=== PATIENT | female | born 2000 | race Caucasian/White ===

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

== ENCOUNTER → 2019-05-29 | Outpatient (CLI) | payer OTHER, MEDICAID ==
[~2019-05-29] MED LIST: MAPA500T2 PO; MOTR200T44 PO; PRENTAB9 PO
[2019-05-29 12:25] LABS: BASO % 0.3 % (0.0-1.0); EOS # 0.1 10^3/uL (0.0-0.5); EOS % 1.5 % (0.0-3.0); HEMOGLOBIN 11.5 g/dl (12.0-15.5); LYMPH # 1.9 10^3/uL (1.5-5.0); LYMPH % 25.4 % (24.0-44.0); MEAN CORPUSCULAR HEMOGLOBIN 23.7 pg (27.0-33.0); MEAN CORPUSCULAR HGB CONC 29.5 g/dl (32.0-36.5); MEAN CORPUSCULAR VOLUME 80.2 fl (80.0-96.0); MONO # 0.4 10^3/uL (0.0-0.8); MONO % 5.9 % (0.0-5.0); NEUTROPHILS # 4.9 10^3/uL (1.5-8.5); NEUTROPHILS % 66.6 % (36.0-66.0); PLATELET COUNT, AUTOMATED 270 10^3/uL (150-450); RED BLOOD COUNT 4.86 10^6/uL (4.00-5.40); WHITE BLOOD COUNT 7.3 10^3/uL (4.0-10.0)
[2019-05-29 12:33] LABS: ALT/SGPT 26 U/L (12-78); CREATININE FOR GFR 0.49 MG/DL (0.55-1.30); GLUCOSE CHALLENGE TEST 1 HOUR 110 MG/DL (LESS THAN 140); LDH LACTATE DEHYDROGENASE 127 U/L (84-246); URIC ACID 2.6 MG/DL (2.6-6.0)
[2019-05-29 12:40] LABS: HEMOGLOBIN A1c 5.3 %; TOTAL PROTEIN,RANDOM URINE 13.8 MG/DL (0.0-12.0)
[2019-05-29 12:46] LABS: RUBELLA IgG QUALITATIVE IMMUNE (IMMUNE)
[2019-05-29 13:15] LABS: HEPATITIS C VIRUS ABY INDEX < 0.0 INDEX (<0.8); HIV 1&2 SCREEN CENTAUR NEGATIVE (NEGATIVE)
[2019-05-29 13:51] LABS: CHLAMYDIA DNA AMPLIFICATION NEGATIVE (NEGATIVE); GC DNA AMPLIFICATION NEGATIVE (NEGATIVE)
== END ==
LOC: M PLALAB 08:46
PROVIDERS: ATTEND Advanced Practice Midwife
DX: O99.211 Obesity complicating pregnancy, first trimester (principal); E66.9 Obesity, unspecified

== ENCOUNTER → 2019-06-15 | Outpatient (REF) | payer OTHER, MEDICAID | LOC: M SFHCWAGY 11:10 | PROVIDERS: ATTEND Advanced Practice Midwife | DX: N39.0 Urinary tract infection, site not specified (principal) ==

== ENCOUNTER → 2019-08-02 | Outpatient (CLI) | payer OTHER ==
--- NOTE | 2019-08-02 20:44 | REP ---
OB ULTRASOUND: Real-time sonographic evaluation of the gravid uterus performed. There is a single living intrauterine gestation, estimated gestational age is reportedly 19 weeks 0 days, EDC 12/27/2019. Today's measurements indicate appropriate growth. BPD 46 mm = 19 weeks 5 days, 71st percentile HC 171 mm = 19 weeks 5 days, 72nd percentile AC 141 mm = 19 weeks 3 days, 61st percentile FL 31 mm = 19 weeks 3 days, 62nd percentile HC/AC ratio 1.21, within normal range of 1.06 to 1.25. Estimated weight 297 grams, 67th percentile. Cervix is closed and measures 4.4 cm in length. heart rate 152 beats per minute. SEEN/GROSSLY UNREMARKABLE Lateral ventricles yes Posterior fossa yes Upper lip yes Four-chamber heart no LVOT no RVOT no Stomach yes Cord insertion yes Three vessel cord yes Kidneys yes Bladder yes Spine yes position: Breech Placenta: Anterior and grade 1 with no previa or abruption. Amniotic fluid: Within normal limits.
== END ==
LOC: M WHC 14:47
PROVIDERS: ATTEND Nurse Practitioner Women's Health
DX: Z34.92 Encounter for supervision of normal pregnancy, unspecified, second trimester (principal); Z3A.16 16 weeks gestation of pregnancy

== ENCOUNTER → 2019-08-24 | Outpatient (CLI) | payer OTHER ==
--- NOTE | 2019-08-25 01:21 | REP ---
Clinical: Anatomical evaluation. Comparison: 08/02/2019 . Findings: Examination demonstrates a single live intrauterine in variable presentation. motion is identified by technologist. Placenta is noted anterior and grade I without evidence for placenta previa or abruption. Amniotic fluid volume is normal. Cervix measures 3.6 cm in length and appears closed. No evidence for nuchal cord. Gestational age by LMP 22 weeks 1 day with HERLINDA 12/27/2019 . Gestational age by current measurements 23 weeks 0 days with HERLINDA 12/21/2019 . FHR equals 160 beats per minute. Estimated weight 568 grams ( 80th percentile). Anatomical assessment demonstrates normal structures including cranium, choroid plexus, cavum, cerebellum/posterior fossa, facial features, lungs, four-chamber heart/ventricular outflow tracts, diaphragm, stomach, cord insertion/three-vessel cord, kidneys/bladder. Impression: Single live intrauterine in variable presentation demonstrating appropriate interval weight and growth. In conjunction with prior examination anatomical assessment is complete and normal. No gross abnormalities are identified.
== END ==
LOC: M WHC 14:47
PROVIDERS: ATTEND Advanced Practice Midwife
DX: Z34.82 Encounter for supervision of other normal pregnancy, second trimester (principal); Z36.2 Encounter for other antenatal screening follow-up; Z3A.22 22 weeks gestation of pregnancy

== ENCOUNTER → 2019-09-27 | Outpatient (REF) | payer OTHER, MEDICAID ==
[2019-09-27 11:30] LABS: HEMATOCRIT 31.4 % (36.0-47.0); HEMOGLOBIN 8.8 g/dl (12.0-15.5); MEAN CORPUSCULAR VOLUME 74.8 fl (80.0-96.0); PLATELET COUNT, AUTOMATED 300 10^3/uL (150-450); WHITE BLOOD COUNT 9.8 10^3/uL (4.0-10.0)
== END ==
LOC: M PLALAB 08:34
PROVIDERS: ATTEND Advanced Practice Midwife
DX: Z01.89 Encounter for other specified special examinations (principal)

== ENCOUNTER → 2019-10-03 | Outpatient (CLI) | payer OTHER | LOC: M LAB 07:48 | PROVIDERS: ATTEND Advanced Practice Midwife | DX: Z34.03 Encounter for supervision of normal first pregnancy, third trimester (principal) ==

== ENCOUNTER → 2019-12-05 | Outpatient (CLI) | payer OTHER, MEDICAID ==
--- NOTE | 2020-01-18 11:22 | REP ---
OBSTETRIC ULTRASOUND FOR GROWTH Delay in reporting results from malfunction of the hospital computer system because of a malware attack. FINDINGS: There is a single intrauterine gestation in a cephalic presentation. The placenta is anterior, grade 2, without previa and without abruptio. heart rate is 158 beats per minute. Subjectively the amniotic fluid volume is upper normal. The amniotic fluid index measures 21.6. Estimated age by todays study is 39 weeks 0 days. Estimated date of confinement (EDC) is 12/12/2019. Estimated weight is 3832 grams, 8 pounds 7 ounces. This is greater than the 98th percentile. No further evaluation is requested or performed at this time. [facility]
== END ==
LOC: M WHC 10:13
PROVIDERS: ATTEND Advanced Practice Midwife
DX: O26.843 Uterine size-date discrepancy, third trimester (principal)

== ENCOUNTER → 2019-12-05 | Outpatient (REF) | payer OTHER, MEDICAID | LOC: M SFHCWAGY 08:51 | PROVIDERS: ATTEND Advanced Practice Midwife | DX: O24.424 Gestational diabetes mellitus in childbirth, insulin controlled (principal); Z3A.00 Weeks of gestation of pregnancy not specified ==

== ENCOUNTER 2019-12-20 23:44 | Inpatient (IN) | payer OTHER, MEDICAID ==
[~2019-12-20] VITALS: Ht 167.6 cm; Wt 105.5 kg
[2019-12-21] VITALS (17 sets, daily range): BP systolic 99–132; BP diastolic 55–92
[2019-12-21 01:09] LABS: HEMATOCRIT 29.4 % (36.0-47.0); HEMOGLOBIN 8.1 g/dl (12.0-15.5); MEAN CORPUSCULAR HEMOGLOBIN 19.1 pg (27.0-33.0); MEAN CORPUSCULAR HGB CONC 27.6 g/dl (32.0-36.5); MEAN CORPUSCULAR VOLUME 69.3 fl (80.0-96.0); PLATELET COUNT, AUTOMATED 244 10^3/uL (150-450); RED BLOOD COUNT 4.24 10^6/uL (4.00-5.40); WHITE BLOOD COUNT 10.1 10^3/uL (4.0-10.0)
[2019-12-21] MEDS: miSOPROStol 50 MCG 1/2 TAB (S0191) PO SCH ×2 (01:13→05:07)
[2019-12-21] MEDS ORDERED: OXYTOCIN DRIP 30 UNITS in IV 1 EA IV SCH ×2 (10:00→21:00)
[2019-12-21] MEDS: LR 1,000 ML IV SCH ×2 (10:20→16:13)
[2019-12-21] MEDS ORDERED: FENTANYL 2MCG/ML ROPIVACAINE 0.2% IN 0.9% NACL 100ML IVBAG As Ordered ONE (16:06)
[2019-12-21] MEDS ORDERED: REFRIGERATOR IV KEYS XX PRN (17:00)
[2019-12-21] MEDS ORDERED: ONDANSETRON 4MG/2ML VIAL IV PRN (17:00)
[2019-12-21] MEDS ORDERED: ePHEDrine SULFATE 25 MG/5 ML(5MG/ML) SYRINGE IV PRN (17:00)
[2019-12-21] MEDS ORDERED: diphenhydrAMINE 50MG/ML VIAL (J1200) IV PRN (17:00)
[2019-12-21] MEDS ORDERED: NALOXONE INJ 0.4MG/1ML VIAL (J2310 PER 1MG) IV PRN (17:00)
[2019-12-21] MEDS ORDERED: LACTATED RINGER'S 1000 ML IV PRN (17:00)
[2019-12-21] MEDS ORDERED: FENTANYL/ROPIVACAINE/NACL BAG 100 ML EPIDURAL SCH (17:00)
[2019-12-21] MEDS ORDERED: EPIDURAL/PCA KEYS XX PRN (17:00)
[2019-12-21] MEDS ORDERED: EPIDURAL COMMENT XX SCH (17:00)
[2019-12-21 20:24] LABS: CORD GAS PH V 7.384 UNITS; CORD GAS PO2 V 30.7 mmHg
[2019-12-21 20:25] LABS: CORD GAS ABE V -5.4; CORD GAS HCO3 V 18.1 MEQ/L; CORD GAS O2 SAT V 71.9 %; CORD GAS SBC V 19.5 MEQ/L
[2019-12-21 20:26] LABS: CORD GAS PCO2 A 52.4 mmHg; CORD GAS PH A 7.239 UNITS; CORD GAS PO2 A 19.3 mmHg
[2019-12-21 20:27] LABS: CORD GAS ABE A -6.2; CORD GAS HCO3 A 21.9 MEQ/L; CORD GAS SBC A 21.9 MEQ/L; CORD GAS TCO2 A 23.5 MEQ/L
[2019-12-21] MEDS ORDERED: RHOGAM 300 MCG (1500 IU) INJ (J2790) IM SCH (20:45)
[2019-12-21] MEDS ORDERED: METHYLERGONOVINE MALEATE 0.2 MG TAB PO PRN (20:45)
[2019-12-21] MEDS ORDERED: ACETAMINOPHEN TAB 650MG DOSE (2X325MG) PO PRN (20:45)
[2019-12-21] MEDS ORDERED: ANUSOL HC CREAM 30GM TOP PRN (20:45)
[2019-12-21] MEDS ORDERED: IBUPROFEN 600MG TAB PO PRN (20:45)
[2019-12-21] MEDS ORDERED: DIBUCAINE 1% OINTMENT 30GM TOP PRN (20:45)
[2019-12-21] MEDS ORDERED: MOM 30ML SUSPENSION UDC PO PRN (20:45)
[2019-12-21] MEDS ORDERED: MEASLES,MUMPS,RUBELLA VACCINE INJ (MMR-II) (90707) SC SCH (20:45)
[2019-12-21] MEDS: ACETAMINOPHEN 500 MG TAB PO PRN (21:26)
[2019-12-21] MEDS: IBUPROFEN 800 MG TAB PO PRN (22:42)
[2019-12-22 00:04] VITALS: BP 125/76
[2019-12-22] MEDS: DOCUSATE SODIUM 100 MG CAP PO SCH ×3 (00:39→21:00)
[2019-12-22 06:00] VITALS: BP 120/54
[2019-12-22] MEDS: ACETAMINOPHEN 500 MG TAB PO PRN ×2 (06:03→17:51)
[2019-12-22] MEDS: IBUPROFEN 800 MG TAB PO PRN (08:49)
[2019-12-22] MEDS ORDERED: PRENATAL VITAMINS CHEWABLE TABLET PO SCH (09:00)
[2019-12-22 09:36] LABS: HEMATOCRIT 24.3 % (36.0-47.0); MEAN CORPUSCULAR HEMOGLOBIN 18.9 pg (27.0-33.0); MEAN CORPUSCULAR HGB CONC 27.2 g/dl (32.0-36.5); MEAN CORPUSCULAR VOLUME 69.6 fl (80.0-96.0); PLATELET COUNT, AUTOMATED 215 10^3/uL (150-450); RED BLOOD COUNT 3.49 10^6/uL (4.00-5.40)
[2019-12-22 09:40] LABS: HEMOGLOBIN 6.6 g/dl (12.0-15.5)
--- NOTE | 2019-12-22 09:46 | IPNPDOC ---
Text Note Date of Service The patient was seen on 12/22/19. NOTE #1 Feels well. Adequate pain management. OOB independently without dizziness. Voiding. VSS, afebrile, normotensive H/H this am 6.6/24.3. Down from 8.1/29.4 on admit. Asymptomatic Fundus firm, NT, down 1 FB Lochia rubra light without odor Perineum intact PP #1, asymptomatic anemia Routine care. Start iron. Anticipate D/C in am VS,Fishbone, I+O VS, Fishbone, I+O Laboratory Tests 12/22/19 08:54 Vital Signs Date Time Temp Pulse Resp B/P (MAP) Pulse Ox O2 Delivery O2 Flow Rate FiO2 12/22/19 06:00 96.7 101 18 120/54 (76) 97 Room Air I&O- Last 24 Hours up to 6 AM 12/22/19 06:00 Intake Total 994 ml Output Total 850 ml Balance 144 ml Veronica Corral CNM Dec 22, 2019 09:46
[2019-12-22 09:48] LABS: BLOOD UREA NITROGEN 4 MG/DL (7-18); CALCIUM LEVEL 8.5 MG/DL (8.5-10.1); CARBON DIOXIDE LEVEL 24 MEQ/L (21-32); CHLORIDE LEVEL 111 MEQ/L (98-107); CREATININE FOR GFR 0.46 MG/DL (0.55-1.30); GLOMERULAR FILTRATION RATE > 60.0 (>60); GLUCOSE, FASTING 104 MG/DL (70-100); POTASSIUM SERUM 3.8 MEQ/L (3.5-5.1); SODIUM LEVEL 143 MEQ/L (136-145)
[2019-12-22] MEDS: FERROUS SULFATE 325MG TAB PO SCH ×2 (11:25→21:00)
[2019-12-22 18:00] VITALS: BP 128/82
--- NOTE | 2019-12-25 08:39 | HPE ---
DATE OF ADMISSION: 12/20/2019 SUBJECTIVE: Samantha is a 19-year-old 3, para 1-0-1-1 at 39 and 1/7 weeks gestation with EDC of 12/27/2019. She presents to Labor and Delivery for induction of labor for A1 gestational diabetes. She denies any painful contractions, vaginal bleeding, leakage of fluid. Fetus has been active. care was initiated at [facility] in the first trimester. course was complicated by A1 gestational diabetes. OBSTETRIC HISTORY: 1. In 2014, spontaneous miscarriage. 2. November 2017, spontaneous vaginal delivery following induction of labor for gestational diabetes and preeclampsia at 37 weeks. She had a female weighing 7 pounds 10 ounces. OBSTETRIC LABORATORY: A positive. Antibody screen negative. Hepatitis B surface antigen negative. Syphilis negative. Rubella immune. HIV negative. Hepatitis C antibody nonreactive. Gestational diabetic screening abnormal at 151. Three hour glucose tolerance test abnormal, fasting 97, one hour 172, two hour 113, and three hour 153. Her GBS is negative. PAST MEDICAL HISTORY: 1. Gestational diabetes. 2. Gestational hypertension. SURGERIES: None. FAMILY HISTORY: Diabetes. SOCIAL HISTORY: The patient is single, however, the father of baby is at the bedside and he is very supportive. She is a nonsmoker, denies alcohol and drug use. No history of sexual transmitted infections. Denies history of abuse, physical, sexual, and emotional. ALLERGIES: No known drug allergies. CURRENT MEDICATIONS: vitamin. OBJECTIVE: Temperature 97.5. Pulse 130. Respirations 18. Blood pressure 126/83. She is alert and oriented x3. heart rate is 150 with moderate variability. Positive accelerations. Negative decelerations. There is an occasional contraction. Her abdomen is gravid, cephalic presentation, with an estimated weight of 8 pounds. Sterile vaginal exam: 1 cm dilated, 50% effaced, -3 stations, very posterior and soft, no show with the exam. ASSESSMENT: 1. Intrauterine at 39 and 1/7 weeks. 2. heart rate category 1. 3. A1 gestational diabetes. PLAN: 1. Admit patient to labor and delivery. 2. Out of bed ad behzad. 3. Routine labs. 4. Regular diet at this time. 5. I plan to start Misoprostol 50 mcg p.o. for cervical ripening. 6. The patient is considering an epidural for her labor coping. 7. Risks, benefits, and alternatives have been reviewed. All of the patient's and her partners questions have been answered. She desires to proceed with induction of labor. She has been verbally consented for emergency surgery and blood products if they are necessary. I do anticipate cervical ripening, labor, and a vaginal delivery. MTDD
--- NOTE | 2020-02-01 15:53 | DN ---
DATE OF DELIVERY: 12/21/2019 Samantha is a 19-year-old female, 2, para 1-0-0-1 who was admitted at 39+ weeks gestation for an induction. This was gestational diabetes. She underwent Cytotec followed by Pitocin with spontaneous rupture of membranes. She then after an epidural became fully dilated. Pushed for approximately 2 hours. Delivered a live male infant in occiput anterior position with a nuchal cord times one over an intact perineum. scores 8 and 9. weight 9 pounds 10 ounces. Placenta delivered spontaneously intact, 3-vessel cord. Perineum, vagina, cervix inspected. No laceration noted. Estimated blood loss 350 mL. Both mother and baby in stable condition. MTDD
== END 2019-12-22 21:45 | disposition home or self-care (01) | DRG 560 ==
LOC: M LDI 23:44 → M OBS 12-21 23:45
PROVIDERS: ADMIT Advanced Practice Midwife; ATTEND Advanced Practice Midwife
PROC: 10E0XZZ Delivery of Products of Conception, External Approach (ICD-10-PCS; principal; 2019-12-21)
DX: O24.425 Gestational diabetes mellitus in childbirth, controlled by oral hypoglycemic drugs (principal); Z37.0 Single live birth; Z3A.39 39 weeks gestation of pregnancy; O13.4 Gestational [pregnancy-induced] hypertension without significant proteinuria, complicating childbirth

== ENCOUNTER → 2020-05-07 | Outpatient (REF) | payer OTHER, MEDICAID | LOC: M SFHCWAGY 09:45 | PROVIDERS: ATTEND Advanced Practice Midwife | DX: Z12.4 Encounter for screening for malignant neoplasm of cervix (principal); Z01.419 Encounter for gynecological examination (general) (routine) without abnormal findings; Z77.9 Other contact with and (suspected) exposures hazardous to health ==

== ENCOUNTER → 2022-02-10 | Outpatient (CLI) | payer OTHER ==
[2022-02-10 15:44] LABS: HEMATOCRIT 38.9 % (36.0-47.0); HEMOGLOBIN 12.1 g/dl (12.0-15.5); MEAN CORPUSCULAR HEMOGLOBIN 25.5 pg (27.0-33.0); MEAN CORPUSCULAR HGB CONC 31.1 g/dl (32.0-36.5); MEAN CORPUSCULAR VOLUME 82.1 fl (80.0-96.0); PLATELET COUNT, AUTOMATED 254 10^3/uL (150-450); RED BLOOD COUNT 4.74 10^6/uL (4.00-5.40); WHITE BLOOD COUNT 10.7 10^3/uL (4.0-10.0)
[2022-02-10 16:28] LABS: HEMOGLOBIN A1c 5.2 %
[2022-02-10 16:29] LABS: ALT/SGPT 33 U/L (12-78); BILIRUBIN,TOTAL 0.6 MG/DL (0.2-1.0); CREATININE FOR GFR 0.43 MG/DL (0.55-1.30); GLOMERULAR FILTRATION RATE > 60.0 (>60); LDH LACTATE DEHYDROGENASE 134 U/L (84-246); TOTAL PROTEIN,RANDOM URINE 23.3 MG/DL (0.0-12.0); URIC ACID 2.4 MG/DL (2.6-6.0)
[2022-02-10 16:54] LABS: HEPATITIS C VIRUS ABY INDEX < 0.0 INDEX (<0.8); HIV 1&2 SCREEN CENTAUR NEGATIVE (NEGATIVE)
[2022-02-10 17:46] LABS: GC DNA AMPLIFICATION NEGATIVE (NEGATIVE)
== END ==
LOC: M PLALAB 13:47
PROVIDERS: ATTEND Advanced Practice Midwife
DX: Z34.91 Encounter for supervision of normal pregnancy, unspecified, first trimester (principal)

== ENCOUNTER → 2022-04-16 | Outpatient (CLI) | payer OTHER | LOC: M WHC 15:09 | PROVIDERS: ATTEND Advanced Practice Midwife | DX: Z34.92 Encounter for supervision of normal pregnancy, unspecified, second trimester (principal); Z3A.19 19 weeks gestation of pregnancy ==

== ENCOUNTER → 2022-06-08 | Outpatient (CLI) | payer OTHER ==
[2022-06-08 13:59] LABS: HEMATOCRIT 35.3 % (36.0-47.0); HEMOGLOBIN 10.3 g/dl (12.0-15.5); MEAN CORPUSCULAR HEMOGLOBIN 24.1 pg (27.0-33.0); MEAN CORPUSCULAR HGB CONC 29.2 g/dl (32.0-36.5); MEAN CORPUSCULAR VOLUME 82.5 fl (80.0-96.0); PLATELET COUNT, AUTOMATED 253 10^3/uL (150-450); RED BLOOD COUNT 4.28 10^6/uL (4.00-5.40); WHITE BLOOD COUNT 8.9 10^3/uL (4.0-10.0)
== END ==
LOC: M PLALAB 08:28
PROVIDERS: ATTEND Advanced Practice Midwife
DX: Z36.89 Encounter for other specified antenatal screening (principal); Z3A.00 Weeks of gestation of pregnancy not specified

== ENCOUNTER → 2022-06-16 | Outpatient (CLI) | payer OTHER | LOC: M LAB 07:24 | PROVIDERS: ATTEND Advanced Practice Midwife | DX: O99.810 Abnormal glucose complicating pregnancy (principal); Z3A.00 Weeks of gestation of pregnancy not specified ==

== ENCOUNTER → 2022-08-12 | Outpatient (REF) | payer OTHER ==
[~2022-08-12] MED LIST changes: +ASPI81CH33 PO; +IRON27TA2 PO
== END ==
LOC: M SFHCWAGY 12:54
PROVIDERS: ATTEND Specialist
DX: Z34.83 Encounter for supervision of other normal pregnancy, third trimester (principal); Z36.85 Encounter for antenatal screening for Streptococcus B

== ENCOUNTER 2022-08-27 07:15 | Inpatient (IN) | payer OTHER ==
[~2022-08-27] VITALS: Ht 167.6 cm; Wt 100.0 kg
[2022-08-27] VITALS (40 sets, daily range): BP systolic 107–169; BP diastolic 57–117
[~2022-08-27 07:15] MED LIST changes: -ASPI81CH33 PO; -IRON27TA2 PO
[2022-08-27] MEDS ORDERED: ASPI81CH33 PO (07:44)
[2022-08-27] MEDS ORDERED: HOME MED LIST COMPLETE! XX SCH (07:45)
[2022-08-27] MEDS ORDERED: IRON27TA2 PO (07:45)
[2022-08-27] MEDS ORDERED: METHYLERGONOVINE MALEATE 0.2MG/ML 1ML VIAL IM PRN (08:15)
[2022-08-27] MEDS ORDERED: miSOPROStol 50MCG 1/2 TABLET PO ONE ×2 (08:15→13:40)
[2022-08-27] MEDS ORDERED: TRANEXAMIC ACID INJection 1,000 MG in NS 100 ML IV PRN (08:15)
[2022-08-27] MEDS ORDERED: LACTATED RINGER'S 1000 ML IV PRN (08:15)
[2022-08-27] MEDS ORDERED: CARBOPROST TROMETHAMINE 250 MCG/ML AMP IM PRN (08:15)
[2022-08-27] MEDS ORDERED: OXYTOCIN DRIP 30 UNITS in IV 1 EA IV PRN ×4 (08:15)
[2022-08-27 08:47] LABS: HEMATOCRIT 37.3 % (36.0-47.0); HEMOGLOBIN 11.3 g/dl (12.0-15.5); MEAN CORPUSCULAR HEMOGLOBIN 24.2 pg (27.0-33.0); MEAN CORPUSCULAR HGB CONC 30.3 g/dl (32.0-36.5); MEAN CORPUSCULAR VOLUME 79.9 fl (80.0-96.0); PLATELET COUNT, AUTOMATED 226 10^3/uL (150-450); RED BLOOD COUNT 4.67 10^6/uL (4.00-5.40); WHITE BLOOD COUNT 7.8 10^3/uL (4.0-10.0)
[2022-08-27 09:21] LABS: URIC ACID 4.5 MG/DL (3.1-7.8)
[2022-08-27 09:23] LABS: LDH LACTATE DEHYDROGENASE 151 U/L (120-246)
[2022-08-27 09:24] LABS: ALT/SGPT 16 U/L (7.0-40); AST/SGOT 13 U/L (<34); CREATININE FOR GFR 0.42 MG/DL (0.55-1.30); GLOMERULAR FILTRATION RATE > 60.0 (>60)
[2022-08-27] MEDS ORDERED: OXYTOCIN DRIP 30 UNITS in IV 1 EA IV SCH (19:20)
[2022-08-27] MEDS ORDERED: LR 1,000 ML IV SCH (19:20)
[2022-08-27] MEDS ORDERED: REFLB XX ONE (20:22)
[2022-08-27] MEDS ORDERED: NALOXONE INJ 0.4MG/1ML VIAL IV PRN (20:30)
[2022-08-27] MEDS ORDERED: LR 500 ML IV PRN (20:30)
[2022-08-27] MEDS ORDERED: diphenhydrAMINE 50MG/ML VIAL IV PRN (20:30)
[2022-08-27] MEDS ORDERED: FENTANYL/ROPIVACAINE/NACL BAG 100 ML EPIDURAL SCH (20:30)
[2022-08-27] MEDS ORDERED: ePHEDrine SULFATE 25 MG/5 ML(5MG/ML) SYRINGE IVP PRN (20:30)
[2022-08-27] MEDS ORDERED: EPIDURAL/PCA KEYS XX PRN (20:30)
[2022-08-27] MEDS ORDERED: ONDANSETRON 4MG 2ML VIAL IV PRN (20:30)
[2022-08-28] VITALS (13 sets, daily range): BP systolic 111–138; BP diastolic 62–89
[2022-08-28] MEDS ORDERED: RHOGAM 300MCG (1500IU) INJ IM SCH (03:20)
[2022-08-28] MEDS ORDERED: DOCUSATE SODIUM 100MG CAPSULE PO PRN (03:20)
[2022-08-28] MEDS ORDERED: METHYLERGONOVINE MALEATE 0.2 MG TAB PO PRN (03:20)
[2022-08-28] MEDS ORDERED: DIBUCAINE 1% OINTMENT 30GM TOP PRN (03:20)
[2022-08-28] MEDS: ACETAMINOPHEN 500 MG TAB PO PRN ×4 (04:02→23:41)
[2022-08-28] MEDS: IBUPROFEN 600MG TAB PO PRN ×2 (06:48→15:29)
[2022-08-28] MEDS ORDERED: PRENATAL VITAMINS CHEWABLE TABLET PO SCH (09:00)
[2022-08-29 06:00] VITALS: BP 107/70
[2022-08-29] MEDS: IBUPROFEN 600MG TAB PO PRN (07:43)
[2022-08-29 09:07] LABS: HEMATOCRIT 33.1 % (36.0-47.0); HEMOGLOBIN 9.8 g/dl (12.0-15.5); MEAN CORPUSCULAR HEMOGLOBIN 23.8 pg (27.0-33.0); MEAN CORPUSCULAR HGB CONC 29.6 g/dl (32.0-36.5); MEAN CORPUSCULAR VOLUME 80.5 fl (80.0-96.0); PLATELET COUNT, AUTOMATED 200 10^3/uL (150-450); RED BLOOD COUNT 4.11 10^6/uL (4.00-5.40); WHITE BLOOD COUNT 8.3 10^3/uL (4.0-10.0)
[2022-08-30] MEDS ORDERED: MEASLES,MUMPS,RUBELLA VACCINE INJ (MMR-II) SC.IMMUN ONE (09:00)
== END 2022-08-29 18:10 | disposition home or self-care (01) | DRG 560 ==
LOC: M LDI 07:15 → M OBS 08-28 05:31
PROVIDERS: ADMIT Obstetrics & Gynecology; ATTEND Obstetrics & Gynecology
PROC: 3E0P7GC Introduction of Other Therapeutic Substance into Female Reproductive, Via Natural or Artificial Opening (ICD-10-PCS; 2022-08-27)
PROC: 10907ZC Drainage of Amniotic Fluid, Therapeutic from Products of Conception, Via Natural or Artificial Opening (ICD-10-PCS; 2022-08-28)
PROC: 10E0XZZ Delivery of Products of Conception, External Approach (ICD-10-PCS; principal; 2022-08-28 15:00)
DX: O13.4 Gestational [pregnancy-induced] hypertension without significant proteinuria, complicating childbirth (principal); Z37.0 Single live birth; Z3A.38 38 weeks gestation of pregnancy; O69.81X0 Labor and delivery complicated by cord around neck, without compression, not applicable or unspecified

== ENCOUNTER 2022-08-31 11:26 | Emergency (ER) | payer OTHER ==
[~2022-08-31] VITALS: Ht 167.6 cm; Wt 95.9 kg
[~2022-08-31 11:26] MED LIST changes: -LR 1,000 ML IV ONE; -MIDAZOLAM INJ 2MG/2ML VIAL As Ordered ONE
[2022-08-31 11:27] VITALS: BP 157/106
== END 2022-08-31 12:33 | disposition left against medical advice (07) ==
LOC: M ED 11:26
DX: Z53.21 Procedure and treatment not carried out due to patient leaving prior to being seen by health care provider (principal)

== ENCOUNTER → 2022-08-31 | Day surgery (SDC) | payer OTHER ==
[~2022-08-31] MED LIST changes: +ASPI81CH33 PO; +IRON27TA2 PO; +LR 1,000 ML IV ONE; +MIDAZOLAM INJ 2MG/2ML VIAL As Ordered ONE
[2022-08-31] MEDS: MIDAZOLAM INJ 2MG/2ML VIAL IV PRN (13:00)
[2022-08-31 13:20] VITALS: BP 135/90
== END | disposition home or self-care (01) ==
LOC: M SDC 12:36
PROVIDERS: ATTEND Internal Medicine
DX: G97.1 Other reaction to spinal and lumbar puncture (principal)
CPT/HCPCS: 62273; J2250